=== PATIENT | female | born 1950 | race Two or more races ===

== ENCOUNTER 2024-04-19 22:30 | Emergency (ER) | payer OTHER ==
[~2024-04-19] VITALS: Ht 170.2 cm; Wt 77.1 kg
[2024-04-19] MEDS ORDERED: ZYRTEC10 M3 (22:40)
[2024-04-20] MEDS ORDERED: RINGERS SOLUTION,LACTATED 500 ML IV STA (00:04)
[2024-04-20] MEDS ORDERED: ONDANSETRON HCL 2 MG/ML VIAL IV STA (00:05)
[2024-04-20] MEDS ORDERED: FAMOtidine 10 MG/ML (4ML VIAL) IV PUSH STA (00:05)
[2024-04-20] MEDS ORDERED: FAMOTIDINE/PF 20 MG/2 ML VIAL ONE (00:23)
[2024-04-20] MEDS ORDERED: ONDANSETRON HCL 2 MG/ML VIAL ONE (00:23)
== END 2024-04-20 02:12 | disposition home or self-care (01) ==
LOC: ER 22:30
DX: R55 Syncope and collapse (principal); Z91.040 Latex allergy status; Z91.013 Allergy to seafood; Z88.8 Allergy status to other drugs, medicaments and biological substances